=== PATIENT | male | born 1990 | race Caucasian/White ===

== ENCOUNTER 2021-07-27 07:36 | Inpatient (IN) | payer OTHER ==
[2021-07-27] MEDS ORDERED: Fentanyl 100 MCG/2 ML VIAL ONE ×2 (07:40→11:44)
[2021-07-27] MEDS ORDERED: Ondansetron PF 4 MG/2 ML Vial ONE ×2 (08:02→12:24)
[2021-07-27] MEDS ORDERED: Morphine 4 MG/ML VIAL ONE ×2 (08:02→14:24)
[2021-07-27] MEDS ORDERED: Boostrix 0.5 ML (Tdap) VIAL ONE (08:20)
[2021-07-27] MEDS ORDERED: hydrALAZINE 20 MG/ML VIAL SLOW IVP PRN (10:12)
[2021-07-27] MEDS ORDERED: Ondansetron PF 4 MG/2 ML Vial IVP PRN (10:12)
[2021-07-27] MEDS ORDERED: Morphine 2 MG/ML VIAL SLOW IVP PRN (10:12)
[2021-07-27] MEDS ORDERED: Iopamidol-370 76% 500 ML 1 ML ONE (10:25)
[2021-07-27 10:29] LABS: #Eosinphils 0.1 thou/uL (0.0-0.7); #Lymphocytes 1.5 thou/uL (1.20-3.40); #Monocytes 1.3 thou/uL (0.11-0.59); %Basophils 0.3 % (0.0-1.0); %Eosinophils 0.4 % (0.0-10.0); %Lymphocytes 9.9 % (21.0-51.0); %Monocytes 8.7 % (0.0-10.0); %Neutrophils 80.7 % (42.0-75.0); Hemoglobin 16.9 g/dL (14.0-18.0); Mean Corpuscular HGB CONC 33.4 g/dL (32.0-36.0); Mean Platelet Volume 6.5 fL (7.4-10.4); Platelet Count 244 thou/uL (130-400); RBC Distribution Width 12.8 % (11.5-14.5); Red Blood Cell (RBC) Count 5.12 mill/uL (4.70-6.10); White Blood Cell (WBC) Count 14.8 thou/uL (4.8-10.8)
[2021-07-27 10:35] LABS: INR-International Normal Ratio 0.9; Prothrombin Time 12.5 sec (12.0-14.7)
[2021-07-27] MEDS ORDERED: HYDROmorphone 0.5 MG/0.5 ML SYRINGE ONE ×3 (10:41→11:44)
[2021-07-27 10:42] LABS: Anion Gap 18 mmol/L (10-20); BUN (Urea Nitrogen) 9 mg/dL (8.9-20.6); Calc. Creatinine Clearance 0 mL/min (70-130); Calcium 9.1 mg/dL (7.8-10.44); Carbon Dioxide 19 mmol/L (22-29); Chloride 111 mmol/L (98-107); Glucose 99 mg/dL (70-105); Phosphorus 3.2 mg/dL (2.3-4.7); Potassium 4.1 mmol/L (3.5-5.1); Sodium 144 mmol/L (136-145)
[2021-07-27] MEDS ORDERED: ceFAZolin Sodium/D5W 2 GM in Premix Bag 1 BAG IVPB SCH (10:45)
[2021-07-27 11:36] LABS: SARS-CoV-2 NAA Rapid Test Not Detected (NotDetected)
[2021-07-27] MEDS ORDERED: Acetaminophen 325 MG TAB PO SCH (12:00)
[2021-07-27] MEDS ORDERED: traMADol HCl 50 MG TAB PO SCH (12:00)
[2021-07-27] MEDS ORDERED: Ampicillin 2 GM VIAL ONE (12:07)
[2021-07-27] MEDS ORDERED: ceFAZolin 2 GM/DEX 5% 100 ML BAG ONE (12:07)
[2021-07-27] MEDS ORDERED: Sodium Chloride 0.9% 20 ML ONE (12:15)
[2021-07-27] MEDS ORDERED: Rocuronium Bromide 10 MG/ML (10ML VIAL) ONE (12:24)
[2021-07-27] MEDS ORDERED: PROPOFOL 200 MG/20 ML VIAL ONE (12:24)
[2021-07-27] MEDS ORDERED: Glycopyrrolate 0.2 MG/ML 5 ML SYRINGE ONE (12:24)
[2021-07-27] MEDS ORDERED: Ketorolac Tromethamine 30 MG/ML VIAL ONE (12:24)
[2021-07-27] MEDS ORDERED: Lidocaine 1% PF 5 ML VIAL ONE (12:24)
[2021-07-27] MEDS ORDERED: Dexamethasone 20 MG/5 ML VIAL ONE (12:24)
[2021-07-27] MEDS ORDERED: PACU-Morphine 4MG/ML VIAL SLOW IVP PRN (13:32)
[2021-07-27] MEDS ORDERED: Ondansetron HCl/PF 4 MG/2 ML Vial IVP PRN (13:32)
[2021-07-27] MEDS ORDERED: Promethazine HCl 25 MG/ML VIAL IM PRN (13:32)
[2021-07-27] MEDS ORDERED: Promethazine HCl 25 MG/ML VIAL IVPB PRN (13:32)
[2021-07-27] MEDS ORDERED: HYDROmorphone 2 MG/ML VIAL SLOW IVP PRN (13:32)
[2021-07-27] MEDS ORDERED: Ibuprofen 200 MG TAB PO SCH (14:00)
[2021-07-27] MEDS: traMADol HCl 50 MG TAB PO SCH ×2 (16:33→21:27)
[2021-07-27] MEDS: Acetaminophen 325 MG TAB PO SCH ×2 (16:34→21:25)
[2021-07-27] MEDS: Ibuprofen 200 MG TAB PO SCH (17:42)
[2021-07-27] MEDS ORDERED: CEFAZOLIN 2 GM in Premix Bag 1 BAG IVPB SCH (19:00)
[2021-07-27] MEDS: traMADol HCl 50 MG TAB PO PRN (19:59)
[2021-07-27] MEDS: Senokot S 8.6-50 MG TAB PO SCH (19:59)
[2021-07-27] MEDS: Famotidine/PF 20 mg/2ml Vial SLOW IVP SCH (19:59)
[2021-07-27] MEDS: ceFAZolin Sodium/D5W 2 GM in Premix Bag 1 BAG IVPB SCH (19:59)
[2021-07-27] MEDS: Cyclobenzaprine 10 MG TAB PO PRN (22:46)
[2021-07-28] MEDS: Acetaminophen 325 MG TAB PO SCH ×4 (02:59→20:58)
[2021-07-28] MEDS: Ibuprofen 200 MG TAB PO SCH ×3 (02:59→18:31)
[2021-07-28] MEDS: traMADol HCl 50 MG TAB PO SCH ×4 (03:00→20:59)
[2021-07-28] MEDS: ceFAZolin Sodium/D5W 2 GM in Premix Bag 1 BAG IVPB SCH (03:00)
[2021-07-28 05:35] LABS: #Lymphocytes 1.3 thou/uL (1.20-3.40); #Monocytes 1.4 thou/uL (0.11-0.59); #Neutrophils 9.3 thou/uL (1.40-6.50); %Eosinophils 0.1 % (0.0-10.0); %Lymphocytes 10.7 % (21.0-51.0); %Monocytes 11.7 % (0.0-10.0); %Neutrophils 77.5 % (42.0-75.0); Hemoglobin 14.6 g/dL (14.0-18.0); Mean Corpuscular Hemoglobin 34.8 pg (27.0-31.0); Mean Corpuscular Volume 99.4 fL (78.0-98.0); Mean Platelet Volume 6.6 fL (7.4-10.4); Platelet Count 219 thou/uL (130-400); RBC Distribution Width 12.5 % (11.5-14.5); Red Blood Cell (RBC) Count 4.19 mill/uL (4.70-6.10); White Blood Cell (WBC) Count 11.9 thou/uL (4.8-10.8)
[2021-07-28 05:59] LABS: Anion Gap 12 mmol/L (10-20); BUN (Urea Nitrogen) 12 mg/dL (8.9-20.6); Calc. Creatinine Clearance 0 mL/min (70-130); Calcium 8.8 mg/dL (7.8-10.44); Carbon Dioxide 25 mmol/L (22-29); Chloride 104 mmol/L (98-107); Glucose 117 mg/dL (70-105); Potassium 3.7 mmol/L (3.5-5.1); Sodium 137 mmol/L (136-145)
[2021-07-28] MEDS: Enoxaparin Sodium 40 MG/0.4 ML SYRINGE SC SCH (08:48)
[2021-07-28] MEDS: Cyclobenzaprine 10 MG TAB PO PRN (08:48)
[2021-07-28] MEDS: traMADol HCl 50 MG TAB PO PRN (08:50)
[2021-07-28] MEDS: Famotidine/PF 20 mg/2ml Vial SLOW IVP SCH ×2 (08:52→20:58)
[2021-07-28] MEDS: Polyethylene Glycol 3350 17 GM Packet PO SCH (08:52)
[2021-07-28] MEDS: Senokot S 8.6-50 MG TAB PO SCH ×2 (08:53→20:58)
[2021-07-28] MEDS ORDERED: FLU VACC QS2021-22(6MOS UP)/PF 60 MCG/0.5 ML SYRINGE IM ONE (09:00)
[2021-07-29] MEDS: Ibuprofen 200 MG TAB PO SCH ×2 (02:07→08:50)
[2021-07-29] MEDS: Acetaminophen 325 MG TAB PO SCH ×3 (05:04→15:02)
[2021-07-29] MEDS: traMADol HCl 50 MG TAB PO SCH ×3 (05:04→15:03)
[2021-07-29] MEDS: Senokot S 8.6-50 MG TAB PO SCH (09:02)
[2021-07-29] MEDS: Polyethylene Glycol 3350 17 GM Packet PO SCH (09:02)
[2021-07-29] MEDS: Enoxaparin Sodium 40 MG/0.4 ML SYRINGE SC SCH (09:02)
[2021-07-29 11:46] VITALS: BP 156/95; TEMP 98.3
== END 2021-07-29 16:15 | disposition home or self-care (01) | DRG 493 ==
LOC: ERS 07:36 → SURG B 11:30 → SDC 11:31 → SURG B 15:01
PROVIDERS: ADMIT Surgery; ATTEND Surgery
PROC: 0QSG3BZ Reposition Right Tibia with Monoplanar External Fixation Device, Percutaneous Approach (ICD-10-PCS; principal; 2021-07-27)
DX: S82.871A Displaced pilon fracture of right tibia, initial encounter for closed fracture (principal); S22.20XA Unspecified fracture of sternum, initial encounter for closed fracture; S22.31XA Fracture of one rib, right side, initial encounter for closed fracture; S27.321A Contusion of lung, unilateral, initial encounter; Z20.822 Contact with and (suspected) exposure to COVID-19; V47.5XXA Car driver injured in collision with fixed or stationary object in traffic accident, initial encounter; S82.451A Displaced comminuted fracture of shaft of right fibula, initial encounter for closed fracture; S02.5XXA Fracture of tooth (traumatic), initial encounter for closed fracture; R91.1 Solitary pulmonary nodule; S62.101A Fracture of unspecified carpal bone, right wrist, initial encounter for closed fracture; F17.210 Nicotine dependence, cigarettes, uncomplicated; F10.129 Alcohol abuse with intoxication, unspecified
CPT/HCPCS: 27818; 36415; 70450; 71045; 71260; 72125; 74177; 76000; 80048; 83735; 84100; 85025; 85610; 85730; 86850; 86900; 86901; 90471; 90715; 96374; 96375; C1713; C1776; G0390; J0290; J1100; J1170; J1650; J1885; J2270; J2405; J2704; J3010; Q9967; S0028; U0002

== ENCOUNTER 2021-08-12 07:42 | Outpatient (CLI) | payer OTHER ==
[2021-08-12 17:41] LABS: SARS-CoV-2 PCR by NAA Not Detected (NotDetected)
== END 2021-08-12 07:43 | disposition home or self-care (01) ==
LOC: LABBT 07:42
PROVIDERS: ATTEND Orthopaedic Surgery
DX: Z01.812 Encounter for preprocedural laboratory examination (principal); Z20.822 Contact with and (suspected) exposure to COVID-19
CPT/HCPCS: U0003; U0005

== ENCOUNTER 2021-08-14 10:19 | Day surgery (SDC) | payer OTHER ==
[2021-08-08 12:46] VITALS: BMI 33.0
[2021-08-14] MEDS ORDERED: Fentanyl 100 MCG/2 ML VIAL ONE ×2 (11:49→12:21)
[2021-08-14] MEDS ORDERED: Midazolam HCl 2 mg/2 ml Vial ONE (11:49)
[2021-08-14] MEDS ORDERED: Ketorolac Tromethamine 30 MG/ML VIAL IVP SCH (12:00)
[2021-08-14] MEDS ORDERED: ceFAZolin 2 GM/DEX 5% 100 ML BAG ONE (12:04)
[2021-08-14] MEDS ORDERED: Ondansetron PF 4 MG/2 ML Vial IVP PRN (12:30)
[2021-08-14] MEDS ORDERED: Fentanyl 100 MCG/2 ML VIAL IV PRN (12:30)
[2021-08-14] MEDS ORDERED: HYDROcodone/Acetaminophen 10/325 mg Tablet PO PRN ×2 (12:30)
[2021-08-14] MEDS ORDERED: Ropivacaine 0.2% 550 ML 550 ML NERVE BLCK SCH (12:30)
[2021-08-14] MEDS ORDERED: Zolpidem Tartrate 5 MG TAB PO PRN (12:30)
[2021-08-14] MEDS ORDERED: Promethazine HCl 25 MG/ML VIAL IM PRN (12:30)
[2021-08-14] MEDS ORDERED: PROPOFOL 200 MG/20 ML VIAL ONE (12:33)
[2021-08-14] MEDS ORDERED: Lidocaine 1% PF 5 ML VIAL ONE (12:33)
[2021-08-14] MEDS ORDERED: Labetalol HCl 100 MG/20 ML VIAL ONE (12:33)
[2021-08-14] MEDS ORDERED: Bupivacaine HCl 0.5%/Epinephrine 1:200,000/PF 30 ml Vial ONE (12:33)
[2021-08-14] MEDS ORDERED: Dexamethasone 20 MG/5 ML VIAL ONE (12:33)
[2021-08-14] MEDS ORDERED: Ondansetron PF 4 MG/2 ML Vial ONE (12:33)
[2021-08-14] MEDS ORDERED: traMADol HCl 50 MG TAB PO PRN ×2 (12:45)
== END 2021-08-14 16:50 | disposition home or self-care (01) ==
LOC: SDC 10:19
PROVIDERS: ATTEND Orthopaedic Surgery
PROC: 0QSG04Z Reposition Right Tibia with Internal Fixation Device, Open Approach (ICD-10-PCS; principal; 2021-08-14)
PROC: 0QHJ04Z Insertion of Internal Fixation Device into Right Fibula, Open Approach (ICD-10-PCS; principal; 2021-08-14)
PROC: 3E0T3BZ Introduction of Anesthetic Agent into Peripheral Nerves and Plexi, Percutaneous Approach (ICD-10-PCS; principal; 2021-08-14)
PROC: 0SPFX5Z Removal of External Fixation Device from Right Ankle Joint, External Approach (ICD-10-PCS; principal; 2021-08-14)
DX: S82.871A Displaced pilon fracture of right tibia, initial encounter for closed fracture (principal); S82.831A Other fracture of upper and lower end of right fibula, initial encounter for closed fracture; F17.200 Nicotine dependence, unspecified, uncomplicated; V89.2XXA Person injured in unspecified motor-vehicle accident, traffic, initial encounter
CPT/HCPCS: 76000; A4306; C1713; C1889; J1100; J2250; J2405; J2704; J2795; J3010

== ENCOUNTER 2021-09-09 13:00 | Outpatient (CLI) | payer OTHER ==
[2021-09-10 10:11] LABS: SARS-CoV-2 PCR by NAA Not Detected (NotDetected)
== END 2021-09-09 13:01 | disposition home or self-care (01) ==
LOC: LABBT 13:00
PROVIDERS: ATTEND Orthopaedic Surgery
DX: Z01.812 Encounter for preprocedural laboratory examination (principal); Z20.822 Contact with and (suspected) exposure to COVID-19
CPT/HCPCS: U0003; U0005

== ENCOUNTER 2021-09-10 10:15 | Day surgery (SDC) | payer OTHER ==
[2021-09-09 13:31] VITALS: BMI 33.0
[2021-09-10] MEDS ORDERED: ceFAZolin 2 GM/Dextrose 50 ML IVPB ONE (11:57)
[2021-09-10] MEDS ORDERED: Fentanyl 100 MCG/2 ML VIAL ONE (12:25)
[2021-09-10] MEDS ORDERED: Ondansetron PF 4 MG/2 ML Vial ONE (12:42)
[2021-09-10] MEDS ORDERED: PROPOFOL 200 MG/20 ML VIAL ONE (12:42)
[2021-09-10] MEDS ORDERED: Ketorolac Tromethamine 30 MG/ML VIAL ONE (12:42)
[2021-09-10] MEDS ORDERED: Lidocaine 1% PF 5 ML VIAL ONE (12:42)
[2021-09-10] MEDS ORDERED: HYDROcodone/Acetaminophen 5/325 mg Tablet ONE (15:31)
== END 2021-09-10 15:50 | disposition home or self-care (01) ==
LOC: SDC 10:15
PROVIDERS: ATTEND Orthopaedic Surgery
PROC: 0JQQ0ZZ Repair Right Foot Subcutaneous Tissue and Fascia, Open Approach (ICD-10-PCS; principal; 2021-09-10)
DX: T81.33XA Disruption of traumatic injury wound repair, initial encounter (principal); Y83.8 Other surgical procedures as the cause of abnormal reaction of the patient, or of later complication, without mention of misadventure at the time of the procedure
CPT/HCPCS: J0690; J3010

== ENCOUNTER 2022-12-31 13:51 | Outpatient (CLI) | payer BC | END 2022-12-31 13:52 | disposition home or self-care (01) | LOC: LABBT 13:51 | PROVIDERS: ATTEND Orthopaedic Surgery | DX: Z01.810 Encounter for preprocedural cardiovascular examination (principal); S82.871G Displaced pilon fracture of right tibia, subsequent encounter for closed fracture with delayed healing | CPT/HCPCS: 93005; 93010 ==